=== PATIENT | male | born 1965 | race Caucasian/White ===

== ENCOUNTER 2016-10-04 18:18 | Emergency (ER) | payer MEDICARE ==
[2016-10-04 21:05] LABS: HEMOGLOBIN 13.8 gm/dl (14.0-17.5); RED BLOOD COUNT 4.55 M/UL (4.20-5.50); WHITE BLOOD COUNT 6.5 K/UL (4.5-11.0)
[2016-10-04 21:19] LABS: BUN/CREATININE RATIO 22 (0-10)
== END 2016-10-05 02:30 | disposition home or self-care (01) ==
LOC: ER1 18:18
PROVIDERS: Family Medicine
DX: Z43.3 Encounter for attention to colostomy (principal); R10.33 Periumbilical pain; R19.7 Diarrhea, unspecified; R53.83 Other fatigue; C20 Malignant neoplasm of rectum; Z88.0 Allergy status to penicillin; Z79.891 Long term (current) use of opiate analgesic; Z79.899 Other long term (current) drug therapy
CPT/HCPCS: 36415; 80053; 81001; 83605; 85025; 87086; 96361; 96374; 96375; 99284; J2270; J2405; J7050; Q9962